=== PATIENT | female | born 1950 | race Caucasian/White ===

== ENCOUNTER → 2022-02-23 | Outpatient (CLI) | payer MEDICARE, SELFPAY ==
--- NOTE | 2022-02-23 08:00 | CT_ITS ---
STUDY: CT RIGHT LOWER EXTREMITY WITHOUT CONTRAST REASON FOR EXAM: Right knee deformity, surgical planning. TECHNIQUE: Transaxial CT imaging of the lower extremity was performed. Coronal and sagittal images were reformatted. Individualized dose optimization techniques were used for this CT. COMPARISON: None. FINDINGS: Knee: There are marginal osteophytes, subchondral eburnation of the medial tibial plateau and joint space loss of the medial femorotibial compartment (coronal reconstruction 33). There are marginal osteophytes of the lateral femorotibial compartment, subchondral cystic change of the lateral femoral condyle and preservation of joint space of the lateral femorotibial compartment. There are marginal osteophytes and joint space narrowing of the patellofemoral compartment (axial image 268). There is a small joint effusion. There is chondrocalcinosis in the lateral meniscus. Hip: There is preservation of joint space. There is a bone island in the femoral neck. Ankle: There is an osteochondral lesion of the medial talar dome (coronal reconstructions 34-38) measuring approximately 1.4 x 0. 7 cm (AP x transverse). There is posterior tibialis tendinosis (axial image 551). There is a plantar calcaneal enthesophyte. CT/Extremity Lower without Contra IMPRESSION: Right knee osteoarthritis. Electronically Signed: Rony Mauricio MD at 8:54 EDT ,
== END | disposition home or self-care (01) ==
LOC: CT 07:54
PROVIDERS: PCP Family Medicine; Referring Provider Specialist; Visit Provider Specialist
DX: M21.161 Varus deformity, not elsewhere classified, right knee (principal)
CPT/HCPCS: 73700

== ENCOUNTER 2022-03-11 16:30 | Observation (INO) | payer MEDICARE, SELFPAY ==
--- NOTE | 2022-02-23 21:47 | PCM.HP.BLA ---
History and Physical History and Physical [facility] Patient Name: Vibha Harvey : 1950 From:? GENE MANZO PA-C? DATE OF SURGERY:? 03/11/2022 ? SURGERY PROCEDURE:? right total knee arthroplasty HISTORY OF PRESENT ILLNESS: Preoperative history and physical exam was performed on February 23, 2022.? This is a 72-year-old female who has had ongoing pain in her right knee since 2018.? Pain has been intermittent, aching, sharp.? Pain is increased with going up and down stairs and walking.? Patient does have start up pain.? Pain is located over the medial joint line.? Pain does not awaken her at night.? She has difficulty with activities of daily living including housework and shopping.? Patient does feel unsafe with stairs and must use a railing.? Patient has tried previous physical therapy and home exercises with no relief in symptoms.? She has tried [id number] Tylenol with minimal relief.? She has had previous corticosteroid injections in the past with minimal relief.? She has had a previous left total knee arthroplasty in [address] Gunter in [facility].? She denies previous surgery on the right knee.? She has tried orthotics in the past with no relief.? She has used a walker for the past 4 months.? We are obtaining surgical clearance from the primary care physician Dr. Eli.? Primary care physician has already ordered lab work and EKG.? They are within normal limits.? She had previous A1c 6.9.? After failing conservative measures and discussing treatment options with Dr. Branden Doss, the patient does wish to proceed with a right total knee arthroplasty.? Patient has medical history pertinent for type 2 diabetes mellitus, gout, hypertension, sleep apnea with use of CPAP.? Currently denies any chest pain, shortness of breath, fevers chills or recent infections. REVIEW OF SYSTEMS: Review Of Systems: Constitutional: Denies change in appetite, fever and weight change. Cardiovasular: Denies chest pain, heart murmur and irregular heartbeat. Respiratory: Reports shortness of breath and wheezing, but denies cough, pneumonia and tuberculosis. Gastrointestinal: Reports diarrhea, but denies constipation, heartburn, nausea, rectal itching, bloody stools and vomiting. Genitourinary: Reports incontinence. Musculoskeletal: Reports gait disturbance, leg swelling and trouble walking, but denies pain and weakness. Skin: Denies Raynaud's, history of shingles and tattoo. Neurological: Denies ambulatory dysfunction, dizziness, numbness/tingling and tremor. Psychiatric: Denies anxiety, insomnia and stress. Hematologic/Lymphatic: Denies anemia, bleeding/bruising tendency and past transfusion. Reviewed, no changes. PAST MEDICAL HISTORY: Advance Care Plan: Other Directive, POA Effective Date: 12/29/2021 Comments: VIDEO PRODUCTION ENGINEER? Other Directive, LIVING WILL Effective Date: 12/29/2021 Comments: COUSIN Past Medical History: Medical Problems: Arthritis, Diabetes, Gout, High Blood Pressure, Hypercholesterolemia, Sleep Apnea Accidents: Fracture - (02/1961) TIBIA (TWICE) Surgical Hx: Knee Replacement Lt - (2015) [facility] Appendectomy - (11/1962) LIAN/ DAKOTAH Gallbladder - (04/2006) GALION- RESSALLAT Hysterectomy - (01/1998) GALION- RESSALLAT Ganglion Cyst Removal - LT HAND / THUMB? Anesthesia Complications: None Assistive Devices: Cpap, Glasses Reviewed and updated. SOCIAL HISTORY: Social History: Marital: Single.Occupation: Retired.Work Status: Retired.Hand Dominance: Right-handed. Personal Habits:? Cigarette Use: Former.Smokeless Tobacco: Never Used Smokeless Tobacco.E-Cigarette Use: Never used.Alcohol: Weekly use.Drug Use: Denies Use.Enjoy Exercising: Exercises 1-3 x/month. Reviewed and updated. VITALS: Ht: 64 Wt: 260lb Wt k.[id number] BMI: 44.6 BP: 138/84 Pulse: 72 Resp: 16 T: 97.7 T: 36.5C Pain Level: 4 O2SatR: 96 ALLERGIES: Lisinopril? MEDICATIONS: Janumet XR 100-1000 mg, Glimepiride 1 mg, Valacyclovir HCL 500 mg, Metoprolol Succinate ER 50 mg, Losartan Potassium 100 mg, Simvastatin 10 mg PRE-OP EXAM:? General appearance:NORMAL? ? ? Other: Eyes: Conjunctivae and lids: NORMAL? Pupils: ERR Ears, Nose, Mouth, and Throat: NORMAL? Other: Inspection of lips, teeth and gums: NORMAL? ?Other: Neck: Examination of neck: no masses noted. Respiratory: Assessment of respiratory effort: NORMAL? ?Other: ?Auscultation of lungs: clear to auscultation no wheezes, rhonchi or rales. Cardiovascular:? Auscultation of heart: regular rate and rhythm, no murmurs, gallops or rubs. PHYSICAL EXAMINATION: Patient does walk with an antalgic gait.? Right knee has moderate effusion.? There is tenderness to palpation over the medial joint line.? He has varus alignment which is correctable on exam.? Range of motion: 0 extension to 180 flexion.? Stable to anterior/posterior drawer exam. IMAGING STUDIES: Previous x-rays of the left knee reveal varus alignment with medial joint space narrowing, subchondral sclerosis, osteophyte formation consistent with stage IV severe tricompartmental osteoarthritis with associated bony erosions. IMPRESSION: 1.? 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 Type 2 diabetes mellitus 3.? Gout 4.? Hypertension 5.? Hypercholesterolemia 6.? Sleep apnea with use of CPAP 7. Morbid Obesity with BMI 44.6 PLAN: Dr. Branden Doss did discuss and review with the patient all treatment options including surgical versus nonsurgical options.? Patient does wish to proceed with the above-stated procedure.? Potential risks, benefits, and complications of the procedure were discussed in detail including but not limited to , infection, nerve and blood vessel damage, persistent pain, numbness, tingling, paresthesias, blood clot, pulmonary embolism, and requirement for possible further surgery.? The patient expressed full understanding and has no further questions for the doctor.? Patient does agree to proceed with the above-stated procedure and has signed the surgery consent form. We discussed the current risks associated with COVID 19.? This does include the risk of exposure while in the hospital.? Patient was reassured local hospitals have low infection rates and are taking all necessary precautions to avoid exposure to patients.? In addition, we discussed strategies that can be used to help limit exposure including those that limit the patient's time in the hospital.? Also using strategies to limit the patient's need for continued inpatient services after being discharged from the hospital.? Patient was notified that we will need to comply with any screening or testing the hospital wishes to perform or that surgery may be delayed for any positive results. This dictation was created using voice recognition software. Phonetic and/or grammatical errors may exist. ___? I have re-examined the patient.? There are no clinical changes since date of exam. ___? See progress notes for changes. ___? Dictated on admission Date: ? ? ?Time: Signature:
[2022-02-25 11:49] LABS: Magnesium 1.7 mg/dL (1.6-2.6)
[2022-03-11] VITALS (14 sets, daily range): BP systolic 116–161; BP diastolic 55–77; PULSE 68–91; RESP 10–20; TEMP 36.2–36.9; O2SAT 93–99; BMI 44.2
--- NOTE | 2022-03-11 07:12 | OP.PCM_ITS ---
Report of Operation Date of Procedure: 03/11/22 Pre-Operative Diagnosis: Right knee primary osteoarthritis Post-Operative Diagnosis: Right knee primary osteoarthritis Surgery/Procedure Performed:: Right minimally invasive robotic total knee replacement Description of Surgical Findings:: Stable knee with good patella tracking Surgeon: Branden Doss luster applicator: Jr Barton Type of Anesthesia: Spinal Anesthesiologist: Juan Capps Special Medications: 2 g Ancef, 1 g TXA at incision, 1 g TXA closure, 10 mg Decadron, joint cocktail (5 mg Duramorph, 30 mL of 0.5% Ropivicaine, 1000 units of epinephrine, 30 mg of Toradol) Specimen's removed: Bony cuts Estimated Blood Loss (mL): 50 Fluids Replaced: 500 mL crystalloid Description of Procedure: Implants used: 1. Richmond size 2 triathlon cruciate retaining distal femoral press-fit component 2. Bradly size 3 press-fit tritanium tibial baseplate 3. Richmond X3 9 mm CS polyethylene 4. Richmond X3 29 mm asymmetric patella Brief history operative indications: 72-year-old female with history of right knee osteoarthritis with radiographic findings with loss of joint space, osteophyte formation and subchondral sclerosis. Failed conservative measures as mentioned in the H&P. Discussion of total knee arthroplasty as well as risk and benefits were discussed the patient including but not limited to blood loss, DVTs, PEs, neurovascular damage, general risk of anesthesia including loss of life, and stiffness or instability were discussed with patient. Patient demonstrated understanding and was able to sign informed consent. Procedure: On the date of procedure patient's right lower extremity was marked in the preoperative area. The patient was then taken back to the operating room where the patient was placed on the table in the supine position. All bony prominences were identified a well-padded. Anesthesia assumed control of the C-spine and airway and remained controlled throughout the remainder of the procedure. A tourniquet was placed on the right upper thigh and the leg was prepped in a sterile fashion. The surgeon then scrubbed at this time .Upon reentering the room right lower extremity was draped in a standard orthopedic fashion. A timeout was then called and everyone agreed upon the side, the site, the procedure to be performed, patient's identity and antibiotics given. Esmarch bandage was used to exsanguinate the extremity and the tourniquet was placed up to 250 mmHg with the knee in flexion. A midline skin incision was made and sharp dissection was taken down through skin subcutaneous tissue and fat. The standard medial parapatellar incision was made and the patella was subluxed laterally. An Appropriate deep MCL release was done and the fat pad was resected. Our attention was then directed to the patella. The patella was everted and a flat resection was made. The knee was then flexed up in 2 femoral pins were placed inside the incision and 2 tibial pins were placed outside the incision in the medial tibia bicortically. Once this was completed the 2 checkpoints in the femur and tibia were placed. Knee was then flexed up and the bony landmarks were registered. Once this was completed knee was taken through range of motion and manually stressed allowing us to a plan for an appropriate tibial cut. The robotic arm was brought into the field sterilely and checkpoint and saw were registered. Based on the patient's deformity the tibial cut was made neutral to the tibial axis. At this time the tensioner was then placed in the joint and ligament tension was checked at 90 degrees and full extension. Based on the patient's ligamentous tension appropriate adjustments were made to the operative plan and ligament releases were done. Once we were happy with our operative plan with balanced flexion and extension gaps our attention was directed to the femur. The robot was brought into the field sterilely and registered. Posterior condylar cuts, anterior chamfer cuts and anterior cuts were appropriately made for a size 2 femur. When these were completed the saws were switched out in the distal femoral and posterior chamfer cuts were made. Protecting the soft tissue throughout this time. A size 3 tibial base plate was selected. the knee was flexed to 90 degrees and the soft tissues and posterior osteophytes were removed from the joint. 40 cc of the periarticular injection was injected into the posterior medial corner of the joint. The appropriate trials were then placed on the femur and tibia. A trial polyethylene was trialed to ensure proper balancing and stability of the knee. The appropriate tibial internal rotation was then marked with a bovie. Our attention was then directed to the patella. The lug holes were drilled and the patella trial was placed. Patellar tracking was checked and deemed appropriate. Once we were happy lug holes were drilled for the femur and trial components were removed. the tibia was subluxed and pinned into place and the keel was punched and drilled appropriately. Final components were verified and opened, and cement was mixed in a vacuum. Richmond Simplex cement was used. The wound was copiously irrigated with normal saline. When the cement was ready the components were impacted into place starting with the tibia, femur and finally cementing the patella. The trial poly component was placed and the knee was placed in full extension. All excess cement was removed in the process. Once the cement had cured the tracking, alignment and balance were verified and a size 9 mm CS polyethylene component was placed. Once the final components were placed a 3-minute dilute Betadine lavage was performed followed by an Irrisept lavage was performed and the wound was copiously irrigated with normal saline solution and the periarticular injection was given. The wound was closed in a layer gonzalez fashion using #1 vicryl interrupted sutures for the arthrotomy, 2-0 interrupted Vicryl suture for the subcuticular layer and cody for final skin closure. A sterile compressive dressing was then placed. The patient was then awakened from anesthesia, [facility] and transferred to the PACU for recovery. Post op plan DVT ppx: ASA 81mg BID, thigh high compression stockings Follow up: in office in 2 weeks for wound check PT: to start POD #0 at hospital, outpatient PT should be arranged. Due to patient's obesity (BMI of 44.3) patient is at increased risk for infections postoperatively. She was placed on doxycycline 100 mg p.o. twice daily for 2 weeks postoperatively. My physician dermatology physician assistant was a vital part of this case. He was important in appropriate retraction during the case, and protection of soft tissues during bony cuts. His intimate knowledge of the case and my steps aided in safe and expedient completion of the procedure as well as appropriate position of the leg during the case. He was also vital in assisting with closure under my direct supervision. Due to the complexity of this case robotic arm was used to assist in the surgery to improve accuracy and clinical outcomes. Complications No intraoperative complications Admit VTE Documentation VTE Present on Admission: No VTE Mechan Device Prophylaxis: SCD's and Thigh High TEE Hose VTE Pharm Prophylaxis ordered?: Yes
[2022-03-11] MEDS: Gabapentin 600 MG Tablet PO (12:05)
[2022-03-11] MEDS: Acetaminophen 500 MG Tablet 1000 MG PO ×2 (12:05→20:58)
[2022-03-11] MEDS: Celecoxib 200 MG Capsule 400 MG PO (12:05)
[2022-03-11] MEDS: Magnesium 2 GM for ERAS IV (12:06)
[2022-03-11] MEDS: Lactated Ringers 1,000 ML 15 ML IV (12:10)
[2022-03-11] MEDS: Insulin Lispro 100 UNIT/ML INSULN.PEN SC ×2 (12:29→16:47)
[2022-03-11 12:35] LABS: Bedside Glucose 256 mg/dL (74-106)
[2022-03-11] MEDS: Lactated Ringers 1,000 ML 125 ML IV (13:45)
--- NOTE | 2022-03-11 13:45 | KNEE_PTH ---
PATIENT: JOSE M HAMM LOC: MS3 U#:[id number] AGE/SX: 72/F ROOM: [facility] RE03/11/[address]: Dr. Branden Doss MD : 1950 BED: 1 DIS: 03/12/2022 SPEC #: [id number] RECD: 03/12/22 08:12 STATUS: HOSSEIN RENeal #: [id number] TESSA: 03/11/22 13:[address]: Branden Doss DEPT: SURGICAL PATHOLOGY RECD BY: Pita Tran ENTERED: 03/12/22 10:57 SP TYPE: TOTAL KNEE OTHR DR: MD Dr. Brian Doran MD Dr. Eric DeHorta, MD Tissues: Knee, NOS Procedures: Decalcification bone/plaque Surgery Specimen Level IV HEADER OPERATION: ERAS, total knee replacement robotic arm assist PRE-OP DIAGNOSIS: Severe right knee tricompartmental osteoarthritis with varus deformity TISSUE SUBMITTED: Right knee debrided bone and tissue MICROSCOPIC DIAGNOSIS Bone and tissue, right knee, total knee replacement/resection: Pieces of bone with degenerative osteoarthritic changes. Fibroadipose tissue, fibroconnective tissue and reactive synovial tissue. SHERLEY:tian 03/18/2022 MICROSCOPIC DESCRIPTION Slides are reviewed. GROSS DESCRIPTION Received is one container designated right knee debrided bone and tissue. The specimen consists of multiple fragments of lamb-yellow bone measuring in aggregate 17 x 10 x 1.5 cm. Also in the specimen container are multiple fragments of yellow-white soft tissue measuring in aggregate 3.5 x 2.5 x 0.7 cm. A number of bony fragments contain articular surfaces consistent with tibial plateau and femoral condyle and displaying prominent osteophyte formation, eburnation, and bone erosion. Call Specialist sections are submitted in two cassettes as follows: 1 - soft tissue, 2 - bone after decalcification. / AM:tian 03/12/2022 TC:5 CPT: 78773, 43366
[2022-03-11] MEDS: dexAMETHasone 10 MG/ML Vial IV (14:10)
[2022-03-11] MEDS: TXA 1000mg in NS100 100ml (IVPB at Incision) 660 MG IV (14:10)
[2022-03-11] MEDS: Cefazolin 2 GM in 0.9% Normal Saline 100 ML IV (14:10)
[2022-03-11] MEDS: TXA 1000mg in NS100 100ml (IVPB at Closure) 660 MG IV (15:15)
[2022-03-11] MEDS: Lactated Ringers 1,000 ML 999 ML IV (16:00)
--- NOTE | 2022-03-11 16:10 | RAD_ITS ---
STUDY: XR Knee 1 or 2 Views 03/11/2022 4:35 PM REASON FOR EXAM: Female, 72 years old. post op -- AP and Lateral xray of operative knee in PACU TECHNIQUE: XR Knee 1 or 2 Views RIGHT COMPARISON: None FINDINGS: There is no fracture or dislocation. There is anatomic alignment. Total knee arthroplasty. Soft tissue edema. Skin cody are seen along the anterior midline aspect of the knee. There is an air-fluid level seen in the suprapatellar region. Joint space is preserved. Subcutaneous air is noted. RAD/Knee 1 or 2 Views IMPRESSION: Successful total knee arthroplasty. Electronically Signed: Brian Coon MD at 16:35 EDT ,
[2022-03-11 17:05] LABS: Bedside Glucose 209 mg/dL (74-106)
--- NOTE | 2022-03-11 19:21 | PCM.PN.HOSP ---
Subjective Subjective Patient status post right total knee replacement per Dr. Doss with requested hospitalist consultation for medical management. Patient currently notes that her knee discomfort is completely controlled and currently has ice machine in place. She states she has complete sensation returned since operative intervention. She does state that she has had mildly decreased urine output and has not urinated since the OR. Patient denies fevers, chills, nausea, emesis, abdominal pain, chest pain or dyspnea. Objective Data Objective Data Vital Signs: Vital Signs Temp Pulse Resp BP Pulse Ox O2 Del Method O2 Flow Rate 98.2 F 80 16 161/68 H 96 Room Air 2 03/11/22 18:43 03/11/22 18:43 03/11/22 18:43 03/11/22 18:43 03/11/22 18:43 03/11/22 18:43 03/11/22 17:00 FiO2 33 03/11/22 17:00 Oxygen Flow Rate (L/min) 2 Oxygen Delivery Method Room Air Weight: 257 lb 15.053 oz Body Mass Index (BMI) 44.2 Intake & Output: Intake and Output for Last 24 Hours 03/09/22 03/10/22 03/11/22 23:59 23:59 23:59 Intake Total 2434 / 2434 Balance 2434 / 2434 Lab / Micro Data Labs: Laboratory Results - last 24 hr 03/11/22 12:17: POC Glucose 256 H 03/11/22 16:43: POC Glucose 209 H Micro: Microbiology 02/25/22 09:47 Swab (Method) Nasal Screen MRSA/MSSA - Final Radiography Diagnostic Testing: Radiology Impression Knee X-Ray 03/11/22 16:10 IMPRESSION: Successful total knee arthroplasty. Electronically Signed: Brian Coon MD at 16:35 EDT , Physical Exam Narrative Physical Examination: General: Awake, alert, oriented x 3 and cooperative, seated upright in the medical surgical bed, no acute distress, notes pain controlled. Skin: Normal color, normal turgor, no icterus, no cyanosis except recent OR with right total knee replacement, dressing in place, no drainage. HEENT: AT/NC, EOMI, PERRLA, MMM, no carotid bruits or JVD noted; however, thickened neck makes evaluation difficult. Lungs: Mildly diminished, greater bases, poor effort, no rales, ronchi or wheezing. Heart: Regular rate and rhythm; no gallop, rub audible. Abdomen: Soft, morbidly obese, NTTP including suprapubic region, no obvious distention however habitus makes evaluation difficult, normal bowel sounds, no obvious HSM but habitus makes evaluation difficult. Extremities: No cyanosis, no clubbing, very mild pedal bilateral edema, status post right total knee replacement, dressings in place, no drainage. Neurological: Patient awake, alert, oriented x 3, cognitive function intact; pupils equally reactive to light and accommodation, cranial nerves II-XII grossly normal, moving all 4 extremities although limited right lower extremity movements given recent OR with right total knee replacement, strength accordingly moderately to severely globally decreased. Psychiatric: Affect appears normal, no acute evidence of depressive or anxiety feelings. Assessment & Plan Assessment/Plan (1) Knee osteoarthritis: PLAN: Plan The patient is a 72 y/o F w/ PMHx: Morbid obesity, ANGELA on CPAP q HS, Diabetes mellitus type II, HTN, HLD, Former tobacco use who presents to [facility] ED on 03/11/22 for planned R TKR per Dr. Doss secondary to ongoing severe right knee primary osteoarthrosis despite conservative outpatient measures and interventions. #1. Severe Osteoarthritis, R Knee: Failed conservative therapies and treatments, admitted per Dr. Doss for planned R TKR, post-operative pain management, bowel regimen, DVT Prophylaxis, PT/OT/CM per Orthopedic surgery discretion. #2. Decreased urinary output: Possibly related with recent anesthetics, discussed with nursing staff and will have bladder scans performed, continue judicious hydration and monitor I's and O's. #3. Diabetes mellitus type II: Recommend holding oral home regimen, continue home insulin regimen, ADA diet, accu checks w/ ISS. #4. Hypertension: Continue home regimen including losartan, metoprolol, PRN hydralazine. #5. Hyperlipidemia: Continue home statin therapy. #6. Morbid Obesity: Weight loss and lifestyle changes encouraged, nutrition consulted. #7. Former tobacco use: Encourage continued tobacco cessation. #8. ANGELA: CPAP nightly. #9. DVT prophylaxis: SCDs, chemoprophylaxis per surgery discretion given recent OR. Charges/Coding Visit Charges Inpatient E&M: 80695 Subs Hosp L3
--- NOTE | 2022-03-11 19:50 | CPS ---
Pt's home CPAP unit set up for her.
[2022-03-11] MEDS: Aspirin 81 MG TAB.CHEW PO (20:56)
[2022-03-11] MEDS: Cefazolin 1 GM/50 ML BAG IV (20:56)
[2022-03-11] MEDS: Doxycycline 100 MG CAPSULE PO (20:57)
[2022-03-11] MEDS: Atorvastatin Calcium 10 MG Tablet 5 MG PO (20:57)
[2022-03-11] MEDS: Senna/Docusate Sodium 1 Tablet 2 TABLET PO (20:58)
[2022-03-11] MEDS: Acyclovir 200 MG Capsule 400 MG PO (20:58)
[2022-03-11 21:21] LABS: Bedside Glucose 151 mg/dL (74-106)
[2022-03-12] VITALS (8 sets, daily range): BP systolic 132–142; BP diastolic 60–72; PULSE 71–80; RESP 16–18; TEMP 36.6; O2SAT 96–97
[2022-03-12 05:29] LABS: Hematocrit 31.1 % (37-47); Hemoglobin 10.3 g/dL (12.0-15.0); Mean Corp Hgb Conc 33.1 g/dL (32-36); Mean Corpuscular Hgb 33.3 pg (27.0-32.0); Mean Corpuscular Volume 100.6 fL (81-99); Mean Platelet Vol. 11.7 fl (6.2-12.0); Platelet Count 142 K/mm3 (150-450); RBC Distribution Width CV 14.3 % (11.6-14.6); RBC Distribution Width SD 52.4 fl (35.1-43.9); Red Blood Count 3.09 M/mm3 (4.2-5.4); White Blood Count 7.7 K/mm3 (4.4-11.0)
[2022-03-12 05:53] LABS: Anion Gap 6 (5-15); BUN 27 mg/dL (7-18); BUN/Creat Ratio 21.8 RATIO (10-20); Calcium,Total 8.6 mg/dL (8.5-10.1); Chloride 109 mmol/L (98-107); Creatinine, Serum 1.24 mg/dL (0.55-1.02); EST Glomerular Filtration Rate 45 mL/min (>60); Est Glom Filt Rate - Afr Amer 55 mL/min (>60); Estimated Creatinine Clearance 35.41 ml/min; Glucose 147 mg/dL (74-106); Potassium 4.2 mmol/L (3.5-5.1); Sodium Level 139 mmol/L (136-145)
[2022-03-12] MEDS: Cefazolin 1 GM/50 ML BAG IV (06:04)
[2022-03-12] MEDS: Acetaminophen 500 MG Tablet 1000 MG PO ×2 (06:08→13:55)
[2022-03-12] MEDS: Insulin Lispro 100 UNIT/ML INSULN.PEN SC ×2 (06:08→11:51)
[2022-03-12 07:00] LABS: Bedside Glucose 163 mg/dL (74-106)
[2022-03-12] MEDS: metFORMIN (XR) 500 MG Tablet 1000 MG PO (09:29)
[2022-03-12] MEDS: Losartan Potassium 100 MG Tablet PO (09:29)
[2022-03-12] MEDS: Metoprolol(XL)Succ 50 MG Tablet PO (09:29)
[2022-03-12] MEDS: Famotidine 20 MG Tablet PO (09:29)
[2022-03-12] MEDS: Glimepiride 1 MG Tablet 0.5 MG PO (09:30)
[2022-03-12] MEDS: Acyclovir 200 MG Capsule 400 MG PO (09:30)
[2022-03-12] MEDS: LINAGLIPTIN 5 MG TABLET PO (09:30)
[2022-03-12] MEDS: Senna/Docusate Sodium 1 Tablet 2 TABLET PO (09:30)
[2022-03-12] MEDS: Aspirin 81 MG TAB.CHEW PO (09:30)
[2022-03-12] MEDS: Doxycycline 100 MG CAPSULE PO (09:30)
--- NOTE | 2022-03-12 10:17 | PCM.PN.ORT ---
Subjective Subjective The patient was sitting in bedside chair upon examination. Patient denies any chest pain, shortness of breath, dizziness, lightheadedness, nausea or vomiting, or calf pain. Pain is controlled on medications. No adverse overnight events. Patient overall is doing very well. She just finished physical therapy which she did well. Pain has been controlled. She did have some drop in hemoglobin but is asymptomatic and vitals are stable. Objective Data Objective Data Vital Signs: Vital Signs Temp Pulse Resp BP Pulse Ox O2 Del Method O2 Flow Rate 97.9 F 76 18 142/60 H 96 Room Air 2 03/12/22 09:26 03/12/22 09:29 03/12/22 09:26 03/12/22 09:29 03/12/22 09:32 03/12/22 09:32 03/12/22 04:30 FiO2 33 03/12/22 04:30 Oxygen Flow Rate (L/min) 2 Oxygen Delivery Method Room Air Weight: 117 kg Body Mass Index (BMI) 44.2 Intake & Output: Intake and Output for Last 24 Hours 03/10/22 03/11/22 03/12/22 23:59 23:59 23:59 Intake Total 3484 / 3984 1050 / 1050 Output Total 600 / 600 Balance 3484 / 3784 450 / 450 Lab / Micro Data Result Diagrams: 03/12/22 05:05 03/12/22 05:05 Labs: Laboratory Results - last 24 hr 03/11/22 12:17: POC Glucose 256 H 03/11/22 16:43: POC Glucose 209 H 03/11/22 20:53: POC Glucose 151 H 03/12/22 05:05: WBC 7.7, RBC 3.09 L, Hgb 10.3 L, Hct 31.1 L, MCV 100.6 H, MCH 33.3 H, MCHC 33.1, RDW Std Deviation 52.4 H, RDW Coeff of Shanel 14.3, Plt Count 142 L, MPV 11.7 03/12/22 05:05: Sodium 139, Potassium 4.2, Chloride 109 H, Carbon Dioxide 24.0, Anion Gap 6, BUN 27 H, Creatinine 1.24 H, Estim Creat Clear Calc 35.41, Est GFR (MDRD) Af Amer 55 L, Est GFR (MDRD) Non-Af 45 L, BUN/Creatinine Ratio 21.8 H, Glucose 147 H, Calcium 8.6 03/12/22 06:07: POC Glucose 163 H Micro: Microbiology 02/25/22 09:47 Swab (Method) Nasal Screen MRSA/MSSA - Final Radiography Diagnostic Testing: Radiology Impression Knee X-Ray 03/11/22 16:10 IMPRESSION: Successful total knee arthroplasty. Electronically Signed: Brian Coon MD at 16:35 EDT Reading Location ID and State: [facility] / [place] , Service support , Physical Exam Narrative Vital signs stable and afebrile. SCDs and TEE hose are in place bilaterally Patient is able to plantarflex and dorsiflex actively. Sensation is intact to light touch to saphenous, sural, superficial and deep peroneal, and tibial distribution. Dressings are clean dry and intact with only trace discharge over the Mepilex dressing in the middle one third and distal pin site Negative Homans bilaterally, negative signs and symptoms of DVT. Const alert, oriented x3 and no apparent distress Assessment & Plan Assessment/Plan (1) Status post total right knee replacement: PLAN: 1. S/P right total knee arthroplasty POD #1 2. Continue Pain Medications: Tylenol and oxycodone 3. DVT Prophylaxis: Take 81 mg aspirin twice daily for 4 weeks postoperatively for DVT prophylaxis. Patient denies previous history of DVT or pulmonary embolism 4. PT/OT: Weightbearing as tolerated with walker 5. H & H: 10.3/31.1, asymptomatic. Postoperative anemia secondary to acute blood loss from surgery without any intra operative complications wiith dilutional component. Patient was placed on ferrous sulfate and folic acid. We discussed the potential for constipation. Use stool softener as needed. Lab work for CBC and BMP was placed on the chart. She will follow-up with her primary care physician for those results and further treatment. She did have some slightly elevated BUN/creatinine. She is followed by automotive vehicle inspector for her diabetes. 6. Encouraged Incentive Spirometry 7. Continue postoperative medical management per medicine 8. Continue doxycycline for 2 weeks postoperatively. Patient is currently on doxycycline secondary to elevated BMI over 40.0. I discussed with patient potential side effects which could include increased sensitivity to the sunlight and must take appropriate precautions. Also recommended [id number] probiotic while on the medication. 9. Disposition: Plan will be for discharge home today as long as pain is well controlled, tolerates therapy, and medically stable. She has outpatient physical therapy established. She would like her medications E scribed to [facility] in [facility]. She will follow-up per postoperative instructions. Upon discharge patient will contact her office with any concerns or questions. Prescription for CBC and BMP was placed on chart. I have reviewed the [place] Automated Rx Reporting System (OARRS) report for this patient for refill pattern and other prescriber involvement as part of the appropriate surveillance for the provision of acute and chronic controlled medications. The report was requested and reviewed on the date of this entry and was considered in the prescribing process. This dictation was created using voice recognition software. Phonetic and/or grammatical errors may exist.
--- NOTE | 2022-03-12 10:21 | DCINST_ITS ---
Discharge Instructions Diet Discharge Diet: No restrictions Activity Discharge Activity: May Not Drive (No driving for 6 weeks postoperatively and must be off narcotics) May shower in (days): 1 (Please turn dressing away from water. Okay to get wet as long as dressing is intact to skin.) Ice area for (Minutes): 20 (Every 1-2 hours while awake. Please place barrier between the skin and ice pack.) Weight Bearing Status: Weight bearing as tolerated Keep extremity elevated above heart level: Operative Extremity Dressing / Incision Call your doctor if your incision/area has: Continuous Slow Oozing, Sudden Increased Bleeding, Increased Pain/ Swelling, Increased Redness and Foul Smelling Discharge Call your doctor if you observe: Fever of 101 or Higher, Coldness, Increased Pain, Numbness or Tingling, Change in Color, Shortness of breath, Chest pain, Calf discomfort and Uncontrolled pain Remove Dressing in: 4 days (Okay to remove dressing on March 16, 2022) Additional Dressing/Incision Instructions:: Follow [facility] Post-op Instructions. Once postoperative dressing has been removed only use gentle soap and water over the incision. Do not use any ointments, Neosporin, salves, alcohol pads over the incision for 6 weeks postoperatively. Do not submerge underwater for 6 weeks postoperatively. Continue with TEE hose/elastic stockings for 2 weeks postoperatively. May remove at nighttime but needs to be placed back on the leg during the day. Do NOT use alcohol with narcotic pain medication. Do NOT make important decisions while taking narcotic medication. If you have problems with taking your medication (rash, itching, nausea, etc.) call the office at once. Follow Up Care Test Results: Test results from this visit will be discussed in further detail at your follow- up appointment, if applicable. Discharge Plan Admission Admit Date/Time: 03/11/22 16:30 Attending Provider: Branden Doss Primary Care Provider: Brian Eli Consulting Providers: Simón Conroy ; Yvette Otero Discharge Orders/Prescriptions Prescriptions: New acetaminophen 500 mg Tablet 1,000 mg PO TID Qty: 100 0RF Rx Instructions: Do not take more than 3000 mg Tylenol in a 24-hour period. aspirin 81 mg capsule 81 mg PO BIDCM 30 Days Qty: 60 0RF Rx Instructions: Take 81 mg aspirin twice daily for 4 weeks postoperatively for DVT proph ylaxis. famotidine 20 mg Tablet 20 mg PO DAILY Qty: 30 0RF doxycycline monohydrate 100 mg Capsule 100 mg PO BID 14 Days Qty: 28 0RF Rx Instructions: Take for 2 weeks postoperatively ferrous sulfate [FeroSul] 325 mg (65 mg iron) Tablet 325 mg PO BID 14 Days Qty: 28 0RF folic acid 1 mg Tablet 1 mg PO BREAKFAST 14 Days Qty: 14 0RF oxycodone 5 mg Tablet 5 - 10 mg PO Q4H PRN PRN (Reason: Pain Score 4-10) 5 Days Qty: 60 0RF sennosides-docusate sodium [Stool Softener-Stimulant Laxat] 8.6-50 mg Tablet 2 tab PO BID Qty: 20 0RF Rx Instructions: Take until first bowel movement, then as needed Continued metoprolol succinate 50 mg tablet extended release 24 hr 50 mg PO DAILY simvastatin 10 mg tablet 10 mg PO DAILY valacyclovir 500 mg tablet 500 mg PO DAILY glimepiride 1 mg tablet 0.5 mg PO DAILY losartan 100 mg tablet 100 mg PO DAILY Janumet XR 100-1,000 mg tablet, ER multiphase 24 hr 1 tab PO DAILY Other Ambulatory Orders: Basic Metabolic Profile (BMP) (Routine) Timeframe: 2 Weeks Facility: [facility] - Location: Laboratory Ordered By: Jr MARTIN CBC-Complete Blood Cnt No Diff (Routine) Timeframe: 2 Days Facility: [facility] - Location: Laboratory Ordered By: Jr MARTIN Referrals / Follow Up: Physical,Therapy [Other] - 03/16/22 10:00 am Brian Eli MD [Primary Care Provider] - Jr Barton PA-C [Med Staff - [facility] Practice Prof] - 03/27/22 9:30 am Disposition Disposition (needs filled in before D/C Order can be placed): Home, Self Care
--- NOTE | 2022-03-12 11:13 | CASEMGMT ---
Social Work MARIO Norris requested SW set up follow-up appointment with pt's PCP for 2 weeks. SW called office of pt PCP Dr. Eli. Left message requesting facility reach out to pt to schedule 2 week f/u. Left pt phone number. ALLEN Mar
--- NOTE | 2022-03-12 12:08 | CASEMGMT ---
MONIQUE MICHAUD Assessment: Face to Face with pt for initial transition planning/care coordination assessment. MONIQUE MICHAUD introduced self and role at [facility], pt voices understanding and consents to assessment. Pt is A/O x4 and answers all questions appropriately at this time. Pt sitting up in chair in no distress. Care providers, pharmacy, and demographics verified/updated. Admitting Dx: TK robotic, right PCP:Alcira Specialists:kirill Doss; bryan Sheehan; andrea Henning [facility]erred [facility]acy: [facility] Insurance: [facility] Prescription Benefit: yes LNOK: Romeo Jimenez, friend Living Arrangements: Pt lives alone in a single story condo with one step to enter from the garage and no steps from the front. Pt reports she was I in ADL's and denies concerns at home. Transportation: Pt drives self and denies concerns with transportation. Pt has [employer]abapt[employer] friends who will transport her post surgery. DME/HHC/SNF: Pt has a CPAP at home, BGM with strips and lancets. Pt states she was not checking her blood sugars prior to surgery but will post surgery. Pt has a FWW, shower bench and grab bars in the bathroom. Pt denies hx of HHC and was at [facility] facility after her last knee replacement. Pt states no concerns with going home at time of dc although she reports being nervous. Reassured pt she did well with therapy. Pt reports having friends available to assist her. Pt has outpt therapy set up at [facility] on Wednesday at 10am. Pt states no further concerns/needs. CM to follow. Advised pt to ask CM if any further question/concerns/needs arise, voices understanding. Pt Goal: Home with outpt therapy set up Plan: Home with outpt therapy set up
[2022-03-12 12:16] LABS: Bedside Glucose 177 mg/dL (74-106)
[2022-03-12] MEDS: oxyCODONE 5 MG Tablet PO (13:54)
[2022-03-12] MEDS: Ferrous Sulfate 325 MG Tablet PO (13:54)
== END 2022-03-12 14:39 | disposition home or self-care (01) ==
LOC: SDC 16:30 → MS3 16:30
PROVIDERS: Anesthesiology; Admitting Provider Specialist; PCP Family Medicine; Referring Provider Specialist; Visit Provider Specialist
PROC: 0SRC0JZ Replacement of Right Knee Joint with Synthetic Substitute, Open Approach (ICD-10-PCS; CPT 27447; principal; 2022-03-11 13:15)
DX: M17.11 Unilateral primary osteoarthritis, right knee (principal); Z68.41 Body mass index [BMI] 40.0-44.9, adult; E66.01 Morbid (severe) obesity due to excess calories; E11.9 Type 2 diabetes mellitus without complications; Z79.84 Long term (current) use of oral hypoglycemic drugs; I10 Essential (primary) hypertension; E78.00 Pure hypercholesterolemia, unspecified; Z79.891 Long term (current) use of opiate analgesic; G47.30 Sleep apnea, unspecified; M21.161 Varus deformity, not elsewhere classified, right knee; M10.9 Gout, unspecified; Z79.899 Other long term (current) drug therapy
CPT/HCPCS: 27447; S2900; 01402; 64445; 36415; 73560; 80048; 82962; 83735; 85027; 87081; 88305; 88311; 96365; 96366; 97110; 97162; 97166; 97530; 97535; 99218; 99251; C1776; J7120; G0378; G0463; J3490